=== PATIENT | female | born 1970 | race African-American/Black ===

== ENCOUNTER 2019-01-07 22:40 | Emergency (ER) | payer OTHER ==
[~2019-01-07] VITALS: Ht 165.1 cm; Wt 61.2 kg
[2019-01-07 23:04] VITALS: BP 166/77
[2019-01-07] MEDS ORDERED: IPRATRPIUM/ALBUTEROL 0.5/2.5MG 3 ML NEBU. NEB ONE (23:30)
--- NOTE | 2019-01-07 23:34 | PHYS DOC ---
Past Medical History Past Medical History: Asthma Past Surgical History: Tubal ligation Alcohol Use: None Drug Use: None Adult General Chief Complaint Chief Complaint: Congestion HPI HPI 48-year-old female presents to ER for complaints of increased shortness of air. Patient reports she has history of asthma and has been cleaning her residence throughout the day and had increased shortness of air after she started cleaning. She denies any chest pain or chest tightness. She reports this feels similar to previous asthma exacerbations. She reports she has been using her albuterol inhaler with minimal relief tonight. Patient denies any recent flu or cold-like illness. She denies productive cough. Review of Systems Review of Systems Constitutional: Denies fever or chills [] Eyes: Denies change in redness or eye pain [] HENT: Denies nasal congestion or sore throat [] Respiratory: Denies cough. Reports SOA Cardiovascular: Denies chest pain or palpitations Musculoskeletal: Denies back/neck pain or joint pain [] Integument: Denies rash, swelling or skin lesions [] Neurologic: Denies headache, focal weakness or sensory changes. Denies dizziness All other systems were reviewed and found to be within normal limits, except as documented in this note. Current Medications Current Medications Current Medications Medications (Trade) Dose Ordered Sig/Laura Start Time Stop Time Status Last Admin Dose Admin Albuterol/ Ipratropium (Duoneb) 3 ml 1X ONCE 01/07/19 23:30 01/07/19 23:42 DC 01/07/19 23:35 3 ML Oxymetazoline HCl (Afrin) 2 spray 1X ONCE 01/08/19 00:15 01/08/19 00:16 DC 01/08/19 00:28 2 SPRAY Prednisone (Prednisone) 50 mg 1X ONCE 01/07/19 23:45 01/07/19 23:46 DC 01/07/19 23:53 50 MG Allergies Allergies Allergies Coded Allergies Type Severity Reaction Last Updated Verified No Known Drug Allergies 01/07/19 No Physical Exam Physical Exam Constitutional: Well developed, well nourished, no acute distress, non-toxic appearance. [] HENT: Normocephalic, atraumatic, bilateral ears normal, oropharynx moist- no pharyngeal swelling/erythema, no oral exudates, nose normal. [] Eyes: Pupils equal, conjunctiva normal, no discharge. [] Neck: Normal range of motion, no tenderness, supple, no stridor. Trachea midline Cardiovascular: Tachycardic heart rate regular rhythm, no murmur [] Lungs & Thorax: Diminished air movement throughout all lung capone with slight expiratory wheeze right upper lobe. Less air movement in bases. Respirations slightly labored and equal. Patient is speaking in full sentences. Skin: Warm, dry, no erythema, no rash. [] Back: No tenderness, no CVA tenderness. [] Extremities: ROM intact, no edema. [] Neurologic: Alert and oriented X 3, normal motor function, normal sensory function, no focal deficits noted. [] Psychologic: Affect normal, judgement normal, mood normal. [] Current Patient Data Vital Signs Vital Signs Date Time Temp Pulse Resp B/P (MAP) Pulse Ox O2 Delivery O2 Flow Rate FiO2 01/07/19 23:36 98 Room Air 01/07/19 23:04 98.4 115 22 166/77 (106) 98.4 EKG EKG [] Radiology/Procedures Radiology/Procedures [] Course & Med Decision Making Course & Med Decision Making 2350: Following DuoNeb treatment patient has increased air movement throughout all lung capone right upper lobes still has slight expiratory wheeze. Patient states she is feeling much better than at time of arrival. RN is at bedside to provide dose of prednisone. Patient is anxious to be discharged from the ER as she is wanting to get home. Patient has had elevated heart rate and when her anxiety was discussed she was able to relax and heart rate went from 123 to 110. She is denying any chest pain or palpitations. She denies any recent travel. At this time patient is also reporting she has sinus congestion. Will provide Afrin while in the ER and monitor awhile longer and reevaluate. On reevaluation following dose of prednisone patient's heart rate improved to 105. O2 saturation 98-99% on room air. Resp equal and nonlabored. She continues to deny any chest pain and at this time states she is not feeling short of air. Patient reports her symptoms have much improved since receiving treatments in the ER. Offered additional DuoNeb treatment as patient has continued expiratory wheeze right upper lobe. Discussed obtaining x-ray for further evaluation. Patient is not wanting any additional monitoring or imaging. She reports she has her albuterol and nebulizer machine at home which she can use. Patient is requesting home discharge as her symptoms have improved. Will provide prescription for prednisone. Patient advised on better ventilation when cleaning.Education provided on signs and symptoms to return to ER. Discharge instructions were discussed. Patient to follow-up with primary care physician if symptoms persist or with any concerns. [place] Disclaimer Dragon Disclaimer This electronic medical record was generated, in whole or in part, using a voice recognition dictation system. Departure Departure Impression: Primary Impression: Asthma exacerbation Additional Impression: Sinus congestion Disposition: HOME, SELF-CARE Condition: STABLE Referrals: UNKNOWN PCP NAME (PCP) Patient Instructions: Asthma Prevention-Brief, Asthma, Adult Additional Instructions: Drink plenty of fluids. If your cleaning provide adequate ventilation in the rooms your cleaning in to avoid exacerbation of your asthma. You can use [id number] Afrin for your sinus congestion- avoid using for more than consecutive 3 days. Start your prescription for prednisone on 01/08/19. Continue your albuterol inhaler as prescribed along with Duoneb treatments as needed. If symptoms persist follow-up with your primary care physician for reevaluation. Scripts Prednisone (PREDNISONE) 50 Mg Tablet 1 TAB PO DAILY, #4 TAB 0 Refills Start on 01/08/19 Prov: JAYESH AZAR APRN 01/08/19 Problem Qualifiers JAYESH AZAR APRN Jan 07, 2019 23:34
[2019-01-07] MEDS ORDERED: predniSONE 10 MG TABLET PO ONE (23:45)
[2019-01-08] MEDS ORDERED: OXYMETAZOLINE 0.05% NASAL SPRAY 30ML BOTTLE. NS ONE (00:15)
[2019-01-08] MEDS ORDERED: PRED50TA PO (00:25)
== END 2019-01-08 00:37 | disposition home or self-care (01) ==
LOC: ER 22:40
DX: J45.901 Unspecified asthma with (acute) exacerbation (principal); R00.0 Tachycardia, unspecified; Z98.51 Tubal ligation status
CPT/HCPCS: 94640; 99283; J7512; J7620